=== PATIENT | female | born 1990 | race Caucasian/White ===

== ENCOUNTER 2023-03-21 16:37 | Outpatient (CLI) | payer OTHER, SELFPAY ==
[2023-03-21 16:55] VITALS: BP 123/58; PULSE 86
[2023-03-21 17:12] VITALS: BP 113/59; PULSE 82
[2023-03-21 17:27] VITALS: BP 134/85; PULSE 82
[2023-03-21 17:42] VITALS: BP 132/81; PULSE 89
--- NOTE | 2023-03-21 18:54 | PC.OBNST ---
NST Note NST Note Start: 03/21/23 16:53 Freq: ONCE Status: Active Protocol: Document 03/21/23 18:46 MARIO (Rec: 03/21/23 18:54 MARIO [id number]) NST Note 1 Para (# of births) 0 EDC 04/22/23 Gestational Age In Weeks & Days 35 Weeks & 3 Days Patient Presented with Complaint(s) of Other Other Complaints Complaints of swelling to whole body Reactive Yes Appropriate for Gestational Age Yes RN Jaspreet Fletcher RN Date 03/21/23 Reactive Yes JERRI Ha, RN Date 03/21/23 OB NST charge Yes Complete NST Note via Write Note Yes The provider's electronic signature indicates the NST is reactive/appropriate for gestational age. *Note to provider: If an addendum is required, open the patient's chart and click on the note under the Nurse/Allied Health tab.
== END 2023-03-21 18:05 | disposition home or self-care (01) ==
LOC: OB OUT 16:37 → OB 16:42
PROVIDERS: PCP Family Medicine; Visit Provider Obstetrics & Gynecology
DX: O26.893 Other specified pregnancy related conditions, third trimester (principal); R22.9 Localized swelling, mass and lump, unspecified; Z3A.35 35 weeks gestation of pregnancy
CPT/HCPCS: 59025; 99213

== ENCOUNTER 2023-03-27 11:13 | Outpatient (CLI) | payer OTHER, SELFPAY ==
[2023-03-28 11:29] LABS: Strep B DNA Probe NEGATIVE (Negative)
[2023-03-28 11:42] LABS: Strep B Pen/Amox Allergy No
== END 2023-03-27 11:14 | disposition home or self-care (01) ==
PROVIDERS: PCP Family Medicine; Visit Provider Obstetrics & Gynecology
DX: Z34.93 Encounter for supervision of normal pregnancy, unspecified, third trimester (principal); Z3A.36 36 weeks gestation of pregnancy
CPT/HCPCS: 87081; 87653

== ENCOUNTER 2023-04-18 14:25 | Inpatient (IN) | payer OTHER, SELFPAY ==
[2023-04-18] VITALS (50 sets, daily range): BP systolic 94–152; BP diastolic 49–88; PULSE 74–166; RESP 18; TEMP 36.8–37.2; O2SAT 87–100; BMI 36.0
[2023-04-18] MEDS: LACTATED RINGERS 1000 ML 1,000 ML 125 ML IV ×3 (15:12→22:48)
[2023-04-18] MEDS: ONDANSETRON 2 MG/ML inj 4 MG IV (15:18)
[2023-04-18 15:22] LABS: Basophils Percent Auto 0.2 % (0.0-3.0); Eosinophils Percent Auto 0.7 % (0.0-7.0); Hematocrit 40.1 % (33.0-51.0); Hemoglobin* 13.5 gm/dL (12.0-16.0); Immature Granulocytes Pct Auto 1.9 %; Lymphocytes Percent Auto 19.9 % (20-44); Mean Corpuscular HGB Conc 34 gm/dL (32-36); Mean Corpuscular Hemoglobin 30 pg (26-34); Mean Corpuscular Volume 90 fL (80-100); Monocytes Percent Auto 7.2 % (0.0-11.0); Neutrophils Percent Auto 70.1 % (42.0-72.0); Platelet Count* 301 K/uL (140-440); RDW Coefficient of Variation % 13.6 % (11.5-15.5); Red Blood Count 4.44 m/uL (4.00-5.20); Slide Review Reflex No; White Blood Count* 16.65 K/uL (4.50-11.00)
[2023-04-18] MEDS: ROPIVACAINE 0.2 % PF 10 ML INJ 20 MG EPIDURAL (15:55)
[2023-04-18] MEDS: ROPIVACAINE 0.2% 100 ml 100 ML 12 MG EPIDURAL ×2 (15:55→21:50)
--- NOTE | 2023-04-18 16:28 | P.ANBPRC_ITS ---
[facility] Medical History (Updated 02/28/23 @ 16:58 by Dianne Canales MD) care in third trimester ?Z34.93 - Encounter for supervision of normal , unspecified, third trimester (ICD-10) Anxiety ?F41.9 - Anxiety disorder, unspecified (ICD-10) Surgical History (Updated 01/07/23 @ 11:48 by Jayde Lake CNM) [place] teeth extracted ?K08.409 - Partial loss of teeth, unspecified cause, unspecified class (ICD- 10) Family History (Updated 01/07/23 @ 11:49 by Jayde Lake CNM) Maternal Grandfather Diabetes Social History (Updated 01/07/23 @ 11:55 by Jayde Lake CNM) Narrative: SOCIAL??? Education: bachelors? 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 Pets: 2 dogs and 2 outside cats Abuse: Denies past/present??? Special Diet: Denies??? Ok with a blood transfusion: yes??? Culture or samaritan beliefs: denies? RISK FACTORS??? Exercise Times/wk: walk 5x days a week?? Depression/Anxiety: history stable?? ANH: 8 PHQ 9: 3?? Seat Belt Use: Routinely?? Smoking: Denies past/present?? Alcohol/day: Denies while ??? Caffeine: 1 pop per day?? Drug Use: Denies past/present??? MRSA: Denies??? What is your current living situation?: I presently have a place to live Problems where you live: no known problems In the past 12 months, utilities in danger of being shut off: no In the past 12 mos, have been you worried that your food would run out before you had money to buy more?: never true In the past 12 mos, the food you bought just didn't last and you didn't have money to buy more?: declined to answer Are you following a diet prescribed by a doctor: No Are you following a special diet: No Highest level of school completed/degree received: Bachelor's degree Physical activity type: walking How many days of moderate to strenuous exercise, like a brisk walk, did you do in the last 7 days: 5 Smoking Status: Never smoker Caffeine: Yes (100mg per day) How often does anyone, including family, friends and others, physically hurt you : never How often does anyone, including family, friends and others, insult or talk down to you: never How often does anyone, including family, friends and others, threaten you with harm: never How often does anyone, including family, friends and others, scream or curse at you: never Little interest or pleasure in doing things: several days Feeling down, depressed, or hopeless: not at all service: No Meds Home Medications and Allergies Home Medications Medication Instructions Recorded Confirmed Type prenat.vits,vilma,yaf-sqlu-egmhf 1 tab PO QDAY 01/07/23 04/17/23 History sertraline 50 mg tablet (Zoloft) 50 mg PO QDAY 03/27/23 04/17/23 History Allergies Allergy/AdvReac Type Severity Reaction Status Date / Time No Known Drug Allergies Allergy Verified 04/17/23 10:53 Results Labs Labs: Laboratory Results - last 24 hr 04/18/23 13:02 WBC 16.65 H RBC 4.44 Hgb 13.5 Hct 40.1 MCV 90 MCH 30 MCHC 34 RDW Coeff of Bonifacio 13.6 Plt Count 301 Neut % (Auto) 70.1 Lymph % (Auto) 19.9 L [place] % (Auto) 7.2 Eos % (Auto) 0.7 Baso % (Auto) 0.2 Neut # (Auto) 11.70 H Lymph # (Auto) 3.30 H [place] # (Auto) 1.20 H Eos # (Auto) 0.10 Baso # (Auto) 0.00 Abs Immat Gran (auto) 0.30 Imm/Tot Granulo (auto) 1.9 Vital Signs Vital Signs: Last Vital Signs Temp 98.4 F 04/18/23 13:04 Pulse 115 H 04/18/23 16:16 Resp 18 04/18/23 13:04 BP 106/60 04/18/23 16:27 Pulse Ox 98 04/18/23 16:23 Anesthesia Procedures Epidural Insertion Patient Location: OB Start Time: 15:55 Stop Time: 16:30 Start Date: 04/18/23 Stop Date: 04/18/23 Reason for Block: procedure for pain Patient Position: sitting Performed By: Ludivina Lozada Preanesthetic Checklist: IV checked, risks and benefits discussed, monitors and equipment checked, timeout performed and anesthesia consent Prep: chlorhexidine gluconate Monitoring: blood pressure monitoring, continuous pulse oximetry and heart rate Approach: midline Vertebral Space: lumbar (1-5) Epidural Technique: JAIMEE saline Needle Type: Tuohy needle Injection Technique: continuous catheter Needle gauge: 17 Needle Length (cm): 10 cm Needle Insertion Depth (cm): 7 Catheter Gauge: 19 Catheter Type: multi-orifice Catheter at skin depth (cm): 13 Test Dose Result: negative and lidocaine 1.5% with epinephrine 1 to 200,000
--- NOTE | 2023-04-18 16:49 | P.LDBA_ITS ---
Subjective History of Present Illness Date Seen: 04/18/23 Narrative: HPI: Ai is a 32-year-old 1 para 0 at 39 and 3/7weeks gestation being admitted for early labor. Her admission history and physical was completed by Chely Shelley MD on 04/03/2023. Her course has been uncomplicated. Her membranes are not ruptured. She reports painful contractions started at approximately 3:30 a.m. on 04/18/2023. The baby has has been moving normally. I examined her after admission and after she received an epidural. OB PROBLEM LIST: Spouse: Jesus. Baby: Boy! Cano Dates by first trimester USN. Transfer at 25.0 weeks 1. Blood type A- * Rhogam at 28wks: 02/01/23 2. Varicella non-immune. Needs vaccine PP. 3. Size greater than dates * Continue monitor fundal height. * Consider 36-week growth ultrasound. 4. H/O Generalized Anxiety Disorder * Prior to was on sertraline 150mg daily. Weaned off prior to conception * 02/28/2023 32w3d: Restarted sertraline at 50mg PO daily x7 days then increase to 100mg for at least 7 days before going back to 150mg QD. COVID FLU TDAP: 02/11/23 OB Labs:??? Blood type: A-, antibody screen negative.??? Hgb (10/03/22): 13.5??? Platelets (10/03/22): 396??? Rubella: Immune??? RPR: non-reactive??? HBsAg: negative??? HIV: negative??? GC/Chlamydia: negative/negative??? Pap (05/2020): negative??? Genetic screening: [id number] negative? IMAGING:??? 1st trimester: 09/19/23 Single IUP, FHR 173, Both ovaries and adnexa normal. GA: 9w2d, EDC 04/22/23.??? Anatomy scan: No anomalies detected, EFW >98%, placenta fundal posterior without previa, CLYDE normal, Right ovary likely hemorrhagic and cystic corpus luteum 1x1.7x1.9cm.? OBJECTIVE: GENERAL: Pleasant, , well groomed woman in no acute distress. VITAL SIGNS: Per electronic medical record: They are normal. HEART: Regular rate and rhythm without gallop, rub or murmur. CHEST: Clear to auscultation bilaterally. ABDOMEN: Gravid, nontender. EFM: Baseline 110-120, accelerations: present, decelerations: absent, moderate variability, reactive. Category 1. TOCO: Q 2-5 minutes, the patient is not feeling them. SVE: 4 cm/100 %/0/anterior/soft. SROM occurred with the cervix check: clear fluid. EXTREMITIES: No edema, cyanosis, clubbing or pain. ASSESSMENT: 32-year-old 1 para 0 at 39 and 3/7 weeks gestation admitted for spontaneous onset of labor PLAN: 1.Pitocin for labor augmentation if needed. 2. SROM: clear fluid 3. GBS negative 4. Has an epidural for labor analgesia 5. Blood type: A negative. OB Exam Physical Exam Vital signs: Temp Pulse Resp BP Pulse Ox 98.4 F 90 18 109/56 L 98 04/18/23 13:04 04/18/23 16:37 04/18/23 13:04 04/18/23 16:37 04/18/23 16:23
--- NOTE | 2023-04-18 23:04 | PM.OBPNL ---
Subjective Date Seen: 04/18/23 Narrative: Subjective: Patient began pushing and was pushing for approximately 30 minutes when I did an assessment in noted there was no descent of the vertex and vertex in the ROT position. I recommended stopping pushing and doing the spinning babies and bundle circuit to promote the fetus to moving to and occiput anterior position to promote vaginal delivery. Vital signs: Per electronic medical record. EFM: Baseline 130's, accelerations: Present, decelerations: Sporadic variable decelerations, moderate variability, reactive. Category 2. [place]: Contractions every 3-5 minutes. SVE: Complete/0 station, caput at +1 station, ROT position Assessment: 32-year-old 1 para 0 at 39 weeks 3 days gestation spontaneous labor, malpresentation. Plan: 1. Pitocin if needed for augmentation 2. Continue spinning babies/ bundle circuit in an attempt to reposition the vertex to promote vaginal delivery Objective Vital Signs: Last Vital Signs Temp 98.4 F 04/18/23 21:31 Pulse 93 04/18/23 22:55 Resp 18 04/18/23 17:55 BP 112/54 L 04/18/23 22:55 Pulse Ox 98 04/18/23 19:20
[2023-04-19] VITALS (18 sets, daily range): BP systolic 112–150; BP diastolic 57–111; PULSE 83–127; RESP 16; TEMP 36.7–37.7; O2SAT 95–97
[2023-04-19] MEDS: OXYTOCIN 30 unit/500 ML in NS 30 UNIT/500 ML BAG 325 UNIT IVPB (01:06)
--- NOTE | 2023-04-19 01:35 | W.PM.VAGD1_ITS ---
Procedure Delivery date: 04/19/23 Procedure Done: Global Procedure Details: Ai is a 32 year-old G 1 P 0 now 1 admitted on 04/18/2023 at 3:00 p.m. at 39 Weeks, 3 Days gestation for spontaneous onset of labor. SROM occurred at 4:30 p.m. on 04/18/2023 with clear fluid. Labor Analgesia: Epidural Pitocin: No Labor onset: 04/18/2023 at 2:00 p.m. Complete: 04/18/2023 at 9:50 p.m.. Pushin04/18/2023 at 9:58 p.m.. heart tones during second stage were: Category 2: Intermittent tubal and early decelerations with contractions and pushing with near immediate return to baseline and moderate variability with some accelerations between contractions: Reassuring. After approximately 30 minutes of pushing the vertex was noted to be in the ROT position so pushing was discontinued and the patient was placed in multiple different body positions to aid in the vertex rotating. First: side lying release then apple tree. These position changes took 60 minutes of time and then the patient had extremely strong urge to push and pushed for a maximum of 2 hours. At 1:05 a.m. on 04/19/2023 a viable male delivered in vertex direct OA presentation over second-degree vaginal laceration via spontaneous vaginal delivery. The was placed on maternal abdomen. Cord was clamped and cut after a 60+ second delay. Nose and mouth were bulb suctioned. weight pending. 8 at 1 minute and 9 at 5 minutes. Shoulder dystocia: No. Nuchal cord: No Placenta delivered spontaneously and complete at 1:17 a.m. with a 3 vessel cord. Laceration(s): Second-degree vaginal. Repaired using 3-0 Vicryl suture in a running manner. Blood loss: 25 mL. Blood loss measurement type: Quantitative Sponge and needles counts are correct. Specimen: None Mother and were stable after delivery. 's name: Jermoe The patient is planning on breast feeding. Delivery monitor: external FHT and external uterine Route of delivery: Laceration description: Vaginal - 2nd Degree Delivery repair: Vicryl Estimated blood loss (mL): 25 Anesthesia type: Local Disposition: floor [place] Infant Gender: Male presentation: vertex Placental Delivery Description: Spontaneous Cord Description: 3 Vessels total score - 1 minute: 8 total score - 5 minute: 9
[2023-04-20 02:00] VITALS: BP 114/75; PULSE 81; RESP 14; TEMP 36.7; O2SAT 97
[2023-04-20 07:49] VITALS: BP 113/77; PULSE 75; RESP 16; TEMP 37; O2SAT 97
--- NOTE | 2023-04-20 08:55 | P.DS_ITS ---
DS: Providers Provider Time Seen by Provider: 08:00 Date Seen: 04/20/23 Date of admission: 04/18/23 14:25 Primary care physician: Virgie Cuevas MD Admitting Clinician: Dianne Canales MD Attending Physician on discharge: aGyla Navarro MD Date of Discharge: 04/20/23 DS: Diagnosis Discharge Diagnosis (1) (normal spontaneous vaginal delivery): Status: Acute Problem details: Boy, 01:05am, Apgars 8/9. Cano (2) Obstetric vaginal laceration with second degree perineal laceration: Status: Acute Exam Narrative: Exam Narrative: VITAL SIGNS: As noted above. GENERAL APPEARANCE: Alert, cooperative female in no acute distress. MOOD & AFFECT: Normal. ABDOMEN: Soft, non-distended and nontender. Well contracted uterus. : Normal lochia. EXTREMITIES: Nonedematous. Well perfused. Nontender. Const: Vital Signs, click to edit/add: Vital Signs - 24 hr 04/19/23 12:34 04/19/23 17:29 04/19/23 19:52 Temperature 99.1 F 98.1 F 99.2 F Pulse Rate [Blood Pressure Cuff] 103 H 101 H 97 Respiratory Rate 16 16 16 Blood Pressure [Ri ght Arm] 112/57 L 129/81 123/64 Pulse Oximetry 97 97 Oxygen Delivery Me thod Room Air Room Air Room Air 04/20/23 02:00 04/20/23 07:49 Temperature 98.0 F 98.6 F Pulse Rate [Blood Pressure Cuff] 81 75 Respiratory Rate 14 16 Blood Pressure [Ri ght Arm] 114/75 113/77 Pulse Oximetry 97 97 Oxygen Delivery Me thod Room Air Room Air Documenting provider has reviewed patient's vital signs: yes OB - DS: Summary Hospital Course Hospital Course: The patient is a 32 year old G 1 P 1001 at 39 3/7 weeks gestation that was admitted to the Center on 04/18/23 for delivery. She had an uncomplicated vaginal delivery. She delivered a viable male infant. She is breast feeding. the patient has done well. Peripartum Data delivery method: Vaginal Laceration description: Perineal - 2nd Degree complications: none [place] Infant Gender: Male Discharge Plan: Home Status at Discharge Functional status at discharge: independent ambulation Overall status at discharge: patient is progressing back to baseline Time Spent with Patient Time attestation: Total time spent providing and/or coordinating discharge services: Time spent: Less than 30 minutes Discharge Plan Discharge Disposition: Home, Self-Care Date of Admission: 04/18/23 14:25 Attending Provider on Discharge: Gayla Navarro Primary Care Provider: Virgie Cuevas Condition: Stable Anticipated Discharge Date/Time: 04/20/23 09:00 Discharge Medications: New acetaminophen 500 mg Tablet 1,000 mg PO Q6H PRNQty: 15 0RF docusate sodium 100 mg Capsule 100 mg PO BID PRNQty: 15 0RF ibuprofen 600 mg Tablet 600 mg PO Q6H PRNQty: 30 0RF Continued lansoprazole 30 mg capsule,delayed release(DR/EC) 30 mg PO QDAY Qty: 90 0RF prenat.vits,vilma,bgk-vbck-yepft Tablet 1 tab PO QDAY sertraline [Zoloft] 50 mg tablet 50 mg PO QDAY omeprazole 40 mg capsule,delayed release(DR/EC) 40 mg PO BID PRN (Reason: GERD) Qty: 180 1RF Discharge Orders: Discharge Order (Routine); Ordered 04/20/23 Ordered By: Gayla Navarro Patient Education: OB Vaginal/Breast Feeding Activity Level: Activity as Tolerated and Other Activity Detail: Nothing vaginally for 6 weeks Discharge Diet: Regular Follow Up Appointments: Virgie Cuevas MD [Primary Care Provider] - Forms: MyHealth Info Instructions Discharge Comments: Follow up in clinic in 2 weeks for mood and follow up. Follow up in 6 weeks for visit.
== END 2023-04-20 12:15 | disposition home or self-care (01) | DRG 807 ==
LOC: OB OUT 14:26 → OB 14:26
PROVIDERS: Admitting Provider Obstetrics & Gynecology; PCP Family Medicine; Visit Provider Obstetrics & Gynecology
DX: O26.893 Other specified pregnancy related conditions, third trimester (principal); Z37.0 Single live birth; Z67.11 Type A blood, Rh negative; O70.1 Second degree perineal laceration during delivery; O32.8XX0 Maternal care for other malpresentation of fetus, not applicable or unspecified; O99.344 Other mental disorders complicating childbirth; F41.1 Generalized anxiety disorder; Z3A.39 39 weeks gestation of pregnancy
CPT/HCPCS: 01967; 36415; 85018; 85025; 85461; 86850; 86900; 86901; J2371; J2405; J2791; J2795; J7120

== ENCOUNTER 2023-05-06 12:30 | Outpatient (CLI) | payer OTHER, SELFPAY ==
--- NOTE | 2023-05-06 15:11 | W.PM.LAC.MC ---
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 Borrego Jaundice: No Reason for Consult Reason for Consult: questions Past Experience Past Experience: No Current Frequency of Day Feedings: about every hours Frequency of Night Feedings: 3 - 4 hours Both Breasts: No Suck: strong Latch: wide Length of Time: 15 - 20 minutes Pumping Pumping: No Supplementing EMB Supplement: No Formula Supplement: No Baby Elimination Number of Wet Diapers a Day: 11 - 12 Number of BM a Day: 11 - 12; yellow and seedy Breast/Nipple Condition Breast Information: WNL Engorgement: No Maternal Nipple Condition - Left: Common Nipple Maternal Nipple Condition - Right: Common Nipple Sore Nipples: No Onsite Pre-Feed weight: 4.29 kg Post-Feed weight: 4.348 kg Milk Transferred (mL): 58 Assessments/Interventions Assessments/Interventions: Met with mom and this now 17 day old ex- term AGA baby for consult. Mom reports things are going well, but she has some general questions and wanted the latch assessed. She reports baby is nursing about every hour during the day and 1 - 2 times overnight. She usually only nurses from one side and feedings last 15 - 20 minutes. She reports baby has more trouble latching to her right side. She isn't pumping or giving baby any supplement. Breasts WNL- symmetrical with rounded lower quadrants, intramammary distance is < 1.5 inches. Nipples are everted and don't flatten or retract on compression, no damage noted. Baby has gained 56 grams/day since his last visit on 05/01/23. Mom denies any caput/cephalohematoma. States he prefers turning his head to the right but has equal ROM when moving his extremities. Palate is WNL, as are his upper and lower frenulum. He has a strong suck on a finger and his tongue easily extends past the gumline; some canoeing when lateralizing. With verbal coaching to support baby's head a little differently, have his arms hug the breast, and point her nipple to his nose she was able to latch him to the right side after only a few attempts. He came off a few times (probably d/t her flow) but she was able to bring him back on without difficulty. He nursed for about 10 minutes before coming off on his own. Mom roused him and tried again on that side. He nursed again for about 10 minutes, transferring 58 ml. Mom would have offered the left side, but he had another appointment in the Peds Clinic. Plan: 1. Continue to nurse ALD- suggested she offer both side at each feeding, suspect this will extend the time between his daytime feedings and give her a little more of a break. Work on getting as wide a latch as possible using the ideas mentioned above. 2. No medical need to supplement. 3. Hand express/[place]/pump to comfort if needed after a feeding. 4. Handout given on ideas POC can do for general massage and to help with baby's tight neck. Also gave handouts on local bodywork specialists. 5. Has circumcision appointment today and mom is interested in attending [facility] on 05/13/23. Meds Home Medications and Allergies Home Medications Medication Instructions Recorded Confirmed Type prenat.vits,vilma,ock-zceq-vzkgx 1 tab PO QDAY 01/07/23 04/17/23 History sertraline 50 mg tablet (Zoloft) 50 mg PO QDAY 03/27/23 04/17/23 History Allergies Allergy/AdvReac Type Severity Reaction Status Date / Time No Known Drug Allergies Allergy Verified 04/17/23 10:53
== END 2023-05-06 12:31 | disposition home or self-care (01) ==
LOC: OB LAC 12:31
PROVIDERS: PCP Family Medicine; Visit Provider Obstetrics & Gynecology
DX: Z39.1 Encounter for care and examination of lactating mother (principal)
CPT/HCPCS: 99211

== ENCOUNTER 2023-06-04 17:41 | Outpatient (CLI) | payer OTHER, SELFPAY ==
[2023-06-04 22:03] LABS: Chlamydia DNA Amplified* NOT DETECTED (No Detected); GC DNA Amplified* NOT DETECTED (No Detected)
== END 2023-06-04 17:42 | disposition home or self-care (01) ==
LOC: NFLDREF 17:42
PROVIDERS: PCP Family Medicine; Visit Provider Registered Nurse
DX: Z11.3 Encounter for screening for infections with a predominantly sexual mode of transmission (principal)
CPT/HCPCS: 87491; 87591

== ENCOUNTER 2024-05-04 09:21 | Outpatient (CLI) | payer OTHER, SELFPAY | END 2024-05-04 09:22 | disposition home or self-care (01) | LOC: KYNREF 09:22 | PROVIDERS: PCP Family Medicine; Visit Provider Obstetrics & Gynecology | DX: O20.9 Hemorrhage in early pregnancy, unspecified (principal) | CPT/HCPCS: 84702 ==

== ENCOUNTER 2024-05-06 10:03 | Outpatient (CLI) | payer OTHER, SELFPAY | END 2024-05-06 10:04 | disposition home or self-care (01) | LOC: NFLDREF 05-08 11:53 | PROVIDERS: PCP Family Medicine; Referring Provider Family Medicine; Visit Provider Obstetrics & Gynecology | DX: O20.9 Hemorrhage in early pregnancy, unspecified (principal) | CPT/HCPCS: 84702 ==

== ENCOUNTER 2024-05-07 09:20 | Outpatient (CLI) | payer OTHER, SELFPAY ==
--- NOTE | 2024-05-07 09:30 | CRLHL7_ITS ---
For Patients: As a result of the Century Cures Act, medical imaging exams and procedure reports are released immediately into your electronic medical record. You may view this report before your referring provider. If you have questions, please contact your health care provider. INDICATION: early ob cramping/bleeding r/o ectopic COMPARISON: None. TECHNIQUE: Real-time sams-scale imaging of the pelvis was performed. FINDINGS: Intrauterine gestational sac is present measuring 1.5 cm, 6 weeks 2 days. No pole. Yolk sac is present measuring 2.8 millimeters. Left ovary is normal. Right ovarian cyst is present measuring 2.2 cm. Corpus luteal right ovarian cyst also present measuring 2.0 cm. Small subchorionic hemorrhage measures 9 x 6 x 11 millimeters. IMPRESSION: Intrauterine gestational sac measuring 6 weeks 2 days. Yolk sac present. No pole. No ectopic. Dictated by Memo Calixto MD @ 05/08/2024 12:11:59 PM (Electronically Signed)
== END 2024-05-07 09:21 | disposition home or self-care (01) ==
LOC: US 09:20
PROVIDERS: PCP Family Medicine; Visit Provider Obstetrics & Gynecology
DX: O20.9 Hemorrhage in early pregnancy, unspecified (principal)
CPT/HCPCS: 76817

== ENCOUNTER 2024-05-27 11:20 | Outpatient (CLI) | payer OTHER, SELFPAY ==
[2024-05-27 18:04] LABS: Chlamydia DNA Amplified* NOT DETECTED (No Detected); GC DNA Amplified* NOT DETECTED (No Detected)
== END 2024-05-27 11:21 | disposition home or self-care (01) ==
PROVIDERS: PCP Family Medicine; Visit Provider Registered Nurse
DX: Z34.91 Encounter for supervision of normal pregnancy, unspecified, first trimester (principal); Z3A.08 8 weeks gestation of pregnancy
CPT/HCPCS: 76817; 86592; 86703; 86704; 86706; 86762; 86787; 86803; 86850; 86900; 86901; 87086; 87340; 87491; 87591

== ENCOUNTER 2024-08-19 08:16 | Outpatient (CLI) | payer OTHER, SELFPAY ==
--- NOTE | 2024-08-19 08:15 | CRLHL7_ITS ---
For Patients: As a result of the Century Cures Act, medical imaging exams and procedure reports are released immediately into your electronic medical record. You may view this report before your referring provider. If you have questions, please contact your health care provider. INDICATION: Evaluate anatomy. COMPARISON: 05/27/2024 TECHNIQUE: Real time sams scale imaging of the fetus was performed as well as color Doppler analysis of the umbilical vessels. FINDINGS: Sonographic imaging demonstrates a single living intrauterine gestation. Fetus demonstrates a regular cardiac rate of 133 beats per minute. Fetus has a vertex position. The placenta lies posteriorly without evidence of placenta previa. Edge of the placenta is located 7.1 cm from the internal cervical os. Amniotic fluid volume appears normal. Single deepest vertical pocket: 3.2 cm. The cervix is closed and measures 4.5 cm in length. The composite ultrasound gestational age is calculated at 20 weeks 4 days with an estimated sonographic due date of 01/02/2025. The estimated weight is 344 grams which lies at the 46th %. The following biometric measurements were obtained: Biparietal diameter: 4.8 cm/20 weeks 4 days 60th% Head circumference: 17.5 cm/20 weeks 0 days 29th% Abdominal circumference: 15.4 cm/20 weeks 4 days 53rd% Femur length: 3.2 cm/20 weeks 0 days 33rd% The HC/AC ratio measures: 1.14 range (1.07-1.25) On anatomic survey, there is a normal appearance of the cerebral ventricles, cavum septi pellucidi, cisterna magna and cerebellum. The nose, lips, and facial profile appear normal. The cervical, thoracic and lumbar spine are well visualized and appear normal. There is a normal four-chamber heart view and the left and right ventricular outflow tracts appear normal. The diaphragm and stomach appear normal. The kidneys and bladder also appear normal. There is a normal three-vessel cord and cord insertion site. The four extremities appear normal. IMPRESSION: Normal OB ultrasound exam with concordance of clinical and sonographic dating. No intrinsic abnormalities noted on anatomic survey. Dictated by Memo Calixto MD @ 08/19/2024 12:09:20 PM (Electronically Signed)
== END 2024-08-19 08:17 | disposition home or self-care (01) ==
LOC: US 08:16
PROVIDERS: PCP Family Medicine; Visit Provider Obstetrics & Gynecology
DX: Z34.92 Encounter for supervision of normal pregnancy, unspecified, second trimester (principal); Z3A.20 20 weeks gestation of pregnancy
CPT/HCPCS: 76805

== ENCOUNTER 2024-10-14 10:30 | Outpatient (CLI) | payer OTHER, SELFPAY | END 2024-10-14 10:31 | disposition home or self-care (01) | LOC: NFLDREF 10:33 | PROVIDERS: PCP Family Medicine; Visit Provider Obstetrics & Gynecology | DX: Z34.93 Encounter for supervision of normal pregnancy, unspecified, third trimester (principal); Z3A.28 28 weeks gestation of pregnancy | CPT/HCPCS: 86592; 86850; J2791 ==

== ENCOUNTER 2024-12-07 14:22 | Outpatient (CLI) | payer BC, SELFPAY ==
[2024-12-08 15:23] LABS: Strep B DNA Probe Negative (Negative)
[2024-12-09 02:12] LABS: Strep B Susceptibility Needed? No
== END 2024-12-07 14:23 | disposition home or self-care (01) ==
LOC: NFLDREF 14:22
PROVIDERS: PCP Family Medicine; Visit Provider Obstetrics & Gynecology
DX: Z34.93 Encounter for supervision of normal pregnancy, unspecified, third trimester (principal); Z3A.36 36 weeks gestation of pregnancy
CPT/HCPCS: 87081; 87653

== ENCOUNTER 2025-01-05 07:37 | Inpatient (IN) | payer BC, SELFPAY ==
[2025-01-05] VITALS (46 sets, daily range): BP systolic 103–155; BP diastolic 56–95; PULSE 65–133; RESP 16–18; TEMP 36.3–37.2; O2SAT 88–100; BMI 33.0
--- NOTE | 2025-01-05 08:17 | W.PM.LDBA ---
Subjective History of Present Illness Date Seen: 01/05/25 Narrative: Patient is being admitted to Labor and Delivery for elective IOL. She is a 34 year old at 40 1/7 weeks gestation. Her full history and physical was dictated by Dr. Canales on 12/17. Please see this for details. Specific Issues/Plans G 2 P 1001 Partner: Jesus. Son: Jerome Baby: Girl! H&P NDP on 12/17/24 MaterniT 21: negative. Expecting a GIRL!! # History of anxiety and depression. Currently stable without medication. # TIESHA 0.5 x 0.9 x 3.5cm (has increased in size) Patient to notify me if she has vaginal bleeding Rh negative: RhoGAM 10/14/2024 Flu: Declined on 06/24 Covid: Not vaccinated. Recommended. Declined on 06/24 Tdap: 10/29/24 RSV: Declined on 11/16/24 b/c she got poked already for her hgb. OB - Problem Based A/P Additional Plan (1) : Status: Acute Plan: Elective induction of labor at 40 weeks, 1 day gestation. Category I tracing. Plan Pitocin for IOL. AROM when regular contractions noted. Continuous monitoring. Delivery/Labor/Induction Plan Plan: induction Induction method: per pitocin protocol OB Exam Physical Exam Vital signs: Temp Pulse Resp BP Pulse Ox 98.9 F 94 16 121/78 97 01/05/25 08:01 01/05/25 08:07 01/05/25 08:01 01/05/25 08:07 01/05/25 08:05 Narrative: Physical exam: General: No acute distress Psych: Alert and oriented x3, full affect HEENT: Normocephalic, atraumatic Heart: Regular rate and rhythm, no murmur rub or gallop Lungs: Clear to auscultation bilaterally Abdomen: Soft, nontender, gravid, cephalic lie, EFW 7 lbs Lower extremities: Trace bilateral edema, no erythema Pelvic exam: yesterday with Dr. Shelley: tracing: Baseline 125, accelerations present, no decelerations, moderate variability. Infrequent contractions.
[2025-01-05] MEDS: LACTATED RINGERS 1000 ML 1,000 ML 125 ML IV (09:03)
[2025-01-05 09:08] LABS: Basophils Percent Auto 0.2 % (0.0-3.0); Eosinophils Percent Auto 0.8 % (0.0-7.0); Hematocrit 39.6 % (33.0-51.0); Hemoglobin* 13.1 gm/dL (12.0-16.0); Immature Granulocytes Pct Auto 0.9 %; Lymphocytes Percent Auto 21.1 % (20-44); Mean Corpuscular HGB Conc 33 gm/dL (32-36); Mean Corpuscular Hemoglobin 31 pg (26-34); Mean Corpuscular Volume 93 fL (80-100); Monocytes Percent Auto 7.5 % (0.0-11.0); Neutrophils Percent Auto 69.5 % (42.0-72.0); Platelet Count* 319 K/uL (140-440); Red Blood Count 4.26 m/uL (4.00-5.20); White Blood Count* 14.85 K/uL (4.50-11.00)
[2025-01-05] MEDS: OXYTOCIN 30 unit/500 ML in NS 30 UNIT/500 ML BAG IVPB (09:16)
[2025-01-05 09:27] LABS: Slide Review Reflex No
[2025-01-05] MEDS: CALCIUM CARBONATE 500 MG CHEW PO (10:23)
[2025-01-05] MEDS: ONDANSETRON 2 MG/ML inj 4 MG IV (11:21)
[2025-01-05] MEDS: BUPIVACAINE 0.25% PF 10 ML 10 ML ML EPIDURAL (11:32)
[2025-01-05] MEDS: ROPIVACAINE 0.2% 100 ml 100 ML 12 MG EPIDURAL (11:32)
--- NOTE | 2025-01-05 12:08 | PM.ANBPRC ---
[facility] Medical History Maternal varicella, non-immune ?O09.899 - Supervision of other high risk pregnancies, unspecified trimester (ICD-10) ?Z28.39 - Other underimmunization status (ICD-10) (normal spontaneous vaginal delivery) (04/19/23) ?O80 - Encounter for full-term uncomplicated delivery (ICD-10) Obstetric vaginal laceration with second degree perineal laceration (04/19/23) ?O70.1 - Second degree perineal laceration during delivery (ICD-10) Anxiety ?F41.9 - Anxiety disorder, unspecified (ICD-10) Surgical History [place] teeth extracted ?K08.409 - Partial loss of teeth, unspecified cause, unspecified class (ICD-10) Family History Maternal Grandfather Diabetes Social History Narrative: SOCIAL??? Education: bachelors? 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 Pets: 2 dogs and 2 outside cats Abuse: Denies past/present??? Special Diet: Denies??? Ok with a blood transfusion: yes??? Culture or christianity beliefs: denies? RISK FACTORS??? Exercise Times/wk: walk 5x days a week?? Depression/Anxiety: history stable?? ANH: 8 PHQ 9: 3?? Seat Belt Use: Routinely?? Smoking: Denies past/present?? Alcohol/day: Denies while ??? Caffeine: 1 pop per day?? Drug Use: Denies past/present??? MRSA: Denies??? What is your current living situation?: I presently have a place to live Problems where you live: no known problems In the past 12 months, utilities in danger of being shut off: no In past 12 months, lack of transportation kept you from medical appts, meetings, work, or getting things needed for daily living: no In the past 12 mos, have been you worried that your food would run out before you had money to buy more?: never true In the past 12 mos, the food you bought just didn't last and you didn't have money to buy more?: never true Are you following a diet prescribed by a doctor: No Are you following a special diet: No Highest level of school completed/degree received: Bachelor's degree Physical activity type: walking How many days of moderate to strenuous exercise, like a brisk walk, did you do in the last 7 days: 5 Smoking Status: Never smoker Caffeine: Yes (100mg per day) How often does anyone, including family, friends and others, physically hurt you: never How often does anyone, including family, friends and others, insult or talk down to you: never How often does anyone, including family, friends and others, threaten you with harm: never How often does anyone, including family, friends and others, scream or curse at you: never service: No Meds Home Medications and Allergies Home Medications ?Medication ?Instructions ?Recorded ?Confirmed ?Type prenat.vits,vilma,bxl-[id number] 1 tab PO QDAY 01/07/23 01/05/25 History Allergies Allergy/AdvReac Type Severity Reaction Status Date / Time No Known Drug Allergies Allergy Verified 01/05/25 08:16 Results Labs Labs: Laboratory Results - last 24 hr 01/05/25 08:46 WBC 14.85 H RBC 4.26 Hgb 13.1 Hct 39.6 MCV 93 MCH 31 MCHC 33 RDW Coeff of [place] 14.0 Plt Count 319 Neut % (Auto) 69.5 Lymph % (Auto) 21.1 [place] % (Auto) 7.5 Eos % (Auto) 0.8 Baso % (Auto) 0.2 Neut # (Auto) 10.30 H Lymph # (Auto) 3.10 H [place] # (Auto) 1.10 H Eos # (Auto) 0.10 Baso # (Auto) 0.00 Abs Immat Gran (auto) 0.10 Imm/Tot Granulo (auto) 0.9 Blood Type A Negative Antibody Screen NEGATIVE Vital Signs Vital Signs: Last Vital Signs Temp 98.9 F 01/05/25 10:18 Pulse 81 01/05/25 12:05 Resp 18 01/05/25 10:18 BP 123/76 01/05/25 12:05 Pulse Ox 100 01/05/25 12:04 Weight: 95.708 kg Height: 170.18 cm Anesthesia Procedures Epidural Insertion Patient Location: OB Start Time: 11:30 Stop Time: 12:09 Start Date: 01/05/25 Stop Date: 01/05/25 Reason for Block: procedure for pain Patient Position: sitting Performed By: Antwon Pascal Preanesthetic Checklist: IV checked, risks and benefits discussed, monitors and equipment checked, pre-op evaluation, timeout performed and anesthesia consent Prep: chlorhexidine gluconate Monitoring: blood pressure monitoring, continuous pulse oximetry and heart rate Approach: midline Vertebral Space: lumbar (1-5) Epidural Technique: JAIMEE saline Needle Type: Tuohy needle Injection Technique: continuous catheter Needle gauge: 17 Needle Length (cm): 10 cm Needle Insertion Depth (cm): 7 Catheter Gauge: 19 Catheter Type: multi-orifice Catheter at skin depth (cm): 13 Test Dose Result: negative and lidocaine 1.5% with epinephrine 1 to 200,000
[2025-01-05] MEDS: fentaNYL 100 MCG/2 ML inj EPIDURAL (12:17)
[2025-01-05] MEDS: IBUPROFEN 600 MG TABLET PO ×2 (13:45→21:16)
--- NOTE | 2025-01-05 16:35 | W.PM.VAGD1_ITS ---
Procedure Procedure Done: [facility] Procedure Details: Ai is a 34-year-old G2 P 1-0-0-1 woman who presented today at 40 weeks, 1 day gestation for elective induction of labor. Her cervical exam the day prior to admission had been 4 cm, 70% and -1 station. tracing at admission was category 1 with baseline of 125 beats per minute. Infrequent contractions were noted. She had IV oxytocin for induction of labor. ? Labor Analgesia:? Epidural ? Labor onset:? 10:45 a.m. SROM occurred at 12:00 p.m. noon with clear fluid. ? Complete:? 12:38 p.m. ? Pushing:? 12:38 p.m. ? heart tones during second stage were notable for recurrent decelerations into the 80s with recovery into the 110s. I discussed vacuum-assisted vaginal delivery with the patient. Her bladder was straight catetherized in preparation. Flat Kiwi cup was placed at flexion point of head but suction was not applied; she went on to have a spontaneous vaginal delivery with the next push. ? At 12:52 p.m. a viable female infant delivered in vertex JESSICA presentation over small second-degree perineal laceration via spontaneous vaginal delivery.? Infant was placed on maternal abdomen.? Cord was clamped and cut after a 30-60 second delay.? Nose and mouth were bulb suctioned.? Infant weight pending.? 6 at 1 minute and 9 at 5 minutes.? Shoulder dystocia: No.? Nuchal cord: No. ? Placenta delivered spontaneously and complete at 1:05 p.m. with a 3 vessel cord. ? Mother and infant were stable after delivery. ? Lacerations:? Second-degree perineal, repaired with 3-0 Vicryl in a running fashion after infiltration with a total of 10 mL of 1% lidocaine. ? Blood loss: 25 mL. Blood loss measurement type: QBL ? Sponge and needles counts are correct. Events: Labor Induction Delivery monitor: external FHT Route of delivery: Episiotomy description: None Laceration description: Vaginal - 2nd Degree Delivery repair: Vicryl Estimated blood loss (mL): 25 Anesthesia type: Epidural [place] Infant Gender: Female total score - 1 minute: 6 total score - 5 minute: 9
[2025-01-05] MEDS: ACETAMINOPHEN 500 MG TABLET 1000 MG PO (17:33)
[2025-01-06 00:37] VITALS: BP 130/74; PULSE 82; RESP 16; TEMP 37; O2SAT 97
[2025-01-06] MEDS: ACETAMINOPHEN 500 MG TABLET 1000 MG PO (03:46)
[2025-01-06 05:39] VITALS: BP 101/61; PULSE 79; RESP 16; TEMP 36.7; O2SAT 97
[2025-01-06 07:03] LABS: Hemoglobin* 12.2 gm/dL (12.0-16.0)
[2025-01-06] MEDS: IBUPROFEN 600 MG TABLET PO (07:22)
--- NOTE | 2025-01-06 07:26 | P.DS_ITS ---
DS: Providers Provider Date Seen: 01/06/25 Date of admission: 01/05/25 07:37 Primary care physician: Not a Local Provider Admitting Clinician: Yola Trevizo MD Attending Physician on discharge: Cece Sampson CNM Date of Discharge: 01/06/25 DS: Diagnosis Discharge Diagnosis (1) care and examination immediately after delivery: Status: Acute (2) Lactating mother: Status: Acute (3) Gestational hypertension: Status: Acute Exam Narrative: Exam Narrative: VSS, afebrile GENERAL APPEARANCE: ?normal affect, alert, no distress MOOD: ?appropriate HEENT: normocephalic, neck supple, full ROM CHEST: ?Symmetrical chest wall movement. ?Normal respiratory effort. ?Clear to auscultation HEART: ?regular rate and rhythm ABDOMEN: ?soft, non-tender. Uterine fundus is firm, at Umbilicus, Midline and is appropriate for the stage of recovery. ?Bowel sounds present. PERINEUM: ?mild edema of the perineum, there is a 2nd degree laceration that is healing well. EXTREMITIES: ?normal and no edema Const: Vital Signs, click to edit/add: Vital Signs - 24 hr 01/05/25 08:00 01/05/25 08:01 01/05/25 08:05 Temperature 98.9 F Pulse Rate Pulse Rate [Right Blood Pressure Cuf f] Respiratory Rate 16 Blood Pressure Blood Pressure [Ri ght Arm] Pulse Oximetry 97 97 Oxygen Delivery Me thod 01/05/25 08:07 01/05/25 10:18 01/05/25 11:28 Temperature 98.9 F Pulse Rate 94 90 83 Pulse Rate [Right Blood Pressure Cuf f] Respiratory Rate 18 Blood Pressure 121/78 130/95 H 135/84 Blood Pressure [Ri ght Arm] Pulse Oximetry 99 100 Oxygen Delivery Me thod 01/05/25 11:29 01/05/25 11:33 01/05/25 11:36 Temperature Pulse Rate Pulse Rate [Right Blood Pressure Cuf f] Respiratory Rate Blood Pressure Blood Pressure [Ri ght Arm] Pulse Oximetry 88 100 93 Oxygen Delivery Me thod 01/05/25 11:38 01/05/25 11:44 01/05/25 11:49 Temperature Pulse Rate 88 Pulse Rate [Right Blood Pressure Cuf f] Respiratory Rate Blood Pressure 152/80 H Blood Pressure [Ri ght Arm] Pulse Oximetry 98 98 97 Oxygen Delivery Me thod 01/05/25 11:54 01/05/25 11:59 01/05/25 12:04 Temperature Pulse Rate 83 Pulse Rate [Right Blood Pressure Cuf f] Respiratory Rate Blood Pressure 124/73 Blood Pressure [Ri ght Arm] Pulse Oximetry 100 100 100 Oxygen Delivery Me thod 01/05/25 12:05 01/05/25 12:09 01/05/25 12:12 Temperature Pulse Rate 81 73 Pulse Rate [Right Blood Pressure Cuf f] Respiratory Rate Blood Pressure 123/76 154/74 H Blood Pressure [Ri ght Arm] Pulse Oximetry 100 Oxygen Delivery Me thod 01/05/25 12:14 01/05/25 12:15 01/05/25 12:19 Temperature Pulse Rate 75 74 Pulse Rate [Right Blood Pressure Cuf f] Respiratory Rate Blood Pressure 133/77 136/69 Blood Pressure [Ri ght Arm] Pulse Oximetry 99 95 Oxygen Delivery Me thod 01/05/25 12:19 01/05/25 12:21 01/05/25 12:24 Temperature Pulse Rate 76 85 Pulse Rate [Right Blood Pressure Cuf f] Respiratory Rate Blood Pressure 155/85 H 116/89 Blood Pressure [Ri ght Arm] Pulse Oximetry 94 98 Oxygen Delivery Me thod 01/05/25 12:29 01/05/25 12:30 01/05/25 12:34 Temperature Pulse Rate 74 88 Pulse Rate [Right Blood Pressure Cuf f] Respiratory Rate Blood Pressure 127/70 118/70 Blood Pressure [Ri ght Arm] Pulse Oximetry 96 97 Oxygen Delivery Me thod 01/05/25 12:35 01/05/25 12:36 01/05/25 12:39 Temperature Pulse Rate 83 106 H Pulse Rate [Right Blood Pressure Cuf f] Respiratory Rate Blood Pressure 126/73 118/69 Blood Pressure [Ri ght Arm] Pulse Oximetry 94 Oxygen Delivery Me thod 01/05/25 12:43 01/05/25 12:45 01/05/25 12:48 Temperature 97.6 F Pulse Rate 102 H Pulse Rate [Right Blood Pressure Cuf f] Respiratory Rate Blood Pressure 103/56 L Blood Pressure [Ri ght Arm] Pulse Oximetry 99 100 Oxygen Delivery Me thod 01/05/25 12:49 01/05/25 13:09 01/05/25 13:10 Temperature 97.6 F Pulse Rate 96 86 Pulse Rate [Right Blood Pressure Cuf f] Respiratory Rate Blood Pressure 113/59 L 114/58 L Blood Pressure [Ri ght Arm] Pulse Oximetry Oxygen Delivery Mi thod 01/05/25 13:22 01/05/25 13:23 01/05/25 13:38 Temperature 97.5 F L Pulse Rate 90 102 H Pulse Rate [Right Blood Pressure Cuf f] Respiratory Rate Blood Pressure 135/59 L 126/59 L Blood Pressure [Ri ght Arm] Pulse Oximetry Oxygen Delivery Mi thod 01/05/25 13:53 01/05/25 14:09 01/05/25 14:09 Temperature 97.4 F L Pulse Rate 86 86 Pulse Rate [Right Blood Pressure Cuf f] Respiratory Rate Blood Pressure 121/65 116/78 Blood Pressure [Ri ght Arm] Pulse [facility] 14[facility]23 01/05/25 14:39 01/05/25 14:40 Temperature 97.4 F L Pulse Rate 68 65 Pulse Rate [Right Blood Pressure Cuf f] Respiratory Rate Blood Pressure 115/64 129/60 Blood Pressure [Ri ght Arm] Pulse Oximetry [facility] 14:53 01/05/25 19:53 01/05/25 19:57 Temperature 98.0 F Pulse Rate 67 Pulse Rate [Right Blood Pressure Cuf f] 87 Respiratory Rate 18 Blood Pressure 121/78 Blood Pressure [Ri ght Arm] 147/74 H 134/74 Pulse Oximetry 97 [facility] 01/06/25 00:37 01/06/25 05:39 Temperature 98.6 F 98.1 F Pulse Rate Pulse Rate [Right Blood Pressure Cuf f] 82 79 Respiratory Rate 16 16 Blood Pressure Blood Pressure [Ri ght Arm] 130/74 101/61 Pulse Oximetry 97 97 Oxygen Delivery Me thod Room Air Room Air Documenting provider has reviewed patient's vital signs: yes OB - DS: Summary Hospital Course Hospital Course: Ai is a 34 y.o. who was admitted to [facility] for elective IOL. ?She had an uncomplicated NVD.?The patient feels well. ?The pain is well controlled with current medications. ?She has no new complaints. ?She is breast feeding and reports things are going well.? the patient has done well.? Vitals have been stable.?She has had some intermittent elevated blood pressures during her stay and meets criteria for gestational hypertension. Lab work is pending this morning. Will plan short term follow up in clinic for BP check and home monitoring. She has remained afebrile.? Has a good appetite, is tolerating a general diet. ?She is voiding without difficulty.? She is passing gas and has not had a bowel movement.? She is ambulating and denies any dizziness.? Has Small amount of rubra lochia. ?She is undecided on her plan for prevention. Peripartum Data Infant delivery method: Vaginal [place] Infant Gender: Female Infant Discharge Plan: Home Status at Discharge Functional status at discharge: independent ambulation Overall status at discharge: patient is progressing back to baseline Time Spent with Patient Time attestation: Total time spent providing and/or coordinating discharge services: Time spent: Less than 30 minutes Discharge Plan Discharge Disposition: Home, Self-Care Date of Admission: 01/05/25 07:37 Attending Provider on Discharge: Cece Sampson Primary Care Provider: Provider,Not a Local Condition: Stable Anticipated Discharge Date/Time: 01/06/25 12:00 Discharge Medications: New acetaminophen 500 mg Tablet 1,000 mg PO Q6H PRNQty: 0 0RF docusate sodium 100 mg Capsule 100 mg PO DAILY Qty: 90 0RF ibuprofen 600 mg Tablet 600 mg PO Q6H PRNQty: 60 0RF Continued prenat.vits,vilma,qqu-evfs-zhhgm Tablet 1 tab PO QDAY Discharge Orders: Discharge Order (Routine); Ordered 01/06/25 Ordered By: Cece Sampson Patient Education: OB Over the Counter Medication Information, OB Vaginal/Breast Feeding Additional Instructions: Discharge instructions were reviewed with the patient including signs and symptoms of infection and home going medications Nothing vaginally for 6 weeks: no tampons or intercourse Off Work or School for weeks Symptoms to report to doctor: * Bleeding that saturates more than one pad per hour * Passing clots larger than the size of a golf ball * Pain not relieved by prescribed medication * Fever above 100.4 degrees Fahrenheit * A foul vaginal odor * Difficulty in emotions, mood, and functions * Thoughts of hurting yourself and/or * Painful, reddened area in your breast * Any drainage, redness, or tenderness in your IV/epidural site * Severe headache that doesn't improve after taking medications * Changes in vision, including temporary loss of vision, blurred vision, and/or light sensitivity * Upper abdominal pain (usually under ribs on the right side) * Decrease in urination or painful, frequent urinating * Chest pain * Shortness of breath * Tenderness or pain with redness and/swelling in the calf(s) of your leg [facility] for a BP check?01/08 or 01/11 Call with BP greater than or equal to 160/110 or consistent readings greater than 140/90 2-week visit: discuss infant feeding concerns, review control options and screen for anxiety/depression. 6-week visit for an annual exam. consultation services are available to all mothers and babies for the first year after delivery.? To make an appointment, please call [phone]. Activity Level: Activity as Tolerated Discharge Diet: Regular Follow Up Appointments: [facility] [Provider Group] Forms: MyHealth Info Instructions
[2025-01-06 07:51] LABS: Alanine Aminotransferase* 16 U/L (4-35); Aspartate Amino Transferase* 31 U/L (12-35); Blood Urea Nitrogen* 10 mg/dL (5-24); Creatinine* 0.6 mg/dL (0.5-1.5); Estimated Glomerular Filt Rate 122 ml/min
[2025-01-06 08:06] LABS: Hematocrit 38.1 % (33.0-51.0); Hemoglobin* 12.7 gm/dL (12.0-16.0); Mean Corpuscular HGB Conc 33 gm/dL (32-36); Mean Corpuscular Hemoglobin 31 pg (26-34); Mean Corpuscular Volume 94 fL (80-100); Platelet Count* 268 K/uL (140-440); Red Blood Count 4.07 m/uL (4.00-5.20); White Blood Count* 15.96 K/uL (4.50-11.00)
[2025-01-06 08:07] LABS: Slide Review Reflex No
[2025-01-06] MEDS: DOCUSATE SODIUM 100 MG CAPSULE PO (08:51)
[2025-01-06 09:20] VITALS: BP 117/64; PULSE 89; RESP 18; TEMP 36.7; O2SAT 96
--- NOTE | 2025-01-06 13:19 | PM.ANPOST ---
Post Anesthesia Note Post Anesthesia Note Patient seen: Inpatient Respiratory Status: adequate Cardiovascular Status: adequate Mental Status: baseline Pain: adequate Temp: baseline Anesthetic awareness: N/A Complications: none Follow care: none
[2025-01-06 14:56] VITALS: BP 117/73
[2025-01-07 03:50] LABS: Rapid Plasma Reagin (RPR) Non Reactive (Non Reactive)
== END 2025-01-06 14:56 | disposition home or self-care (01) | DRG 560 ==
PROVIDERS: Advanced Practice Midwife; Admitting Provider Obstetrics & Gynecology; Visit Provider Obstetrics & Gynecology
DX: O70.1 Second degree perineal laceration during delivery (principal); Z3A.40 40 weeks gestation of pregnancy; Z37.0 Single live birth; O13.4 Gestational [pregnancy-induced] hypertension without significant proteinuria, complicating childbirth; O26.893 Other specified pregnancy related conditions, third trimester; O99.344 Other mental disorders complicating childbirth; F41.9 Anxiety disorder, unspecified; F32.A Depression, unspecified; Z67.11 Type A blood, Rh negative
CPT/HCPCS: 01967; 36415; 82565; 84450; 84460; 84520; 85018; 85025; 85027; 85461; 86592; 86850; 86900; 86901; A9270; J0665; J2405; J2791; J2795; J3010; J7120